=== PATIENT | male | born 1965 | race Caucasian/White ===

== ENCOUNTER 2020-05-06 18:19 | Emergency (ER) | payer BC, SELFPAY ==
--- NOTE | ~2020-05-06 | CT_ITS ---
EXAMINATION: CT cervical spine wo con DATE: 05/06/2020 19:17 INDICATION: Status post fall. Intoxication. TECHNIQUE: Computed tomography (CT) of the cervical spine was performed without intravenous contrast. The dose-length product was 434 mGy-cm. Automated exposure control and iterative reconstruction tech nique were employed. COMPARISON: None FINDINGS: No acute fracture or traumatic malalignment. Reversal of cervical lordosis, likely due to m uscle spasm and or patient positioning. Lung apices are normal. No paraspinal soft tissue abnormality . There is intracranial atherosclerosis. There is disc narrowing and endplate hypertrophy at C5-6 and C6-7. IMPRESSION: 1. No acute abnormality of cervical spine. 2: Moderate cervical spondylosis. Reviewed, dictated and finalized at location A.
--- NOTE | ~2020-05-06 | CT_ITS ---
EXAMINATION: CT brain wo con DATE: 05/06/2020 19:17 INDICATION: Fall with intoxication TECHNIQUE: Computed tomography (CT) of the head was performed without intravenous contrast. The dose- length product was 605.33 mGy-cm. The mA was adjusted according to patient size. Iterative reconstruc tion technique was employed. COMPARISON: None FINDINGS: There is mild cerebellar atrophy. No acute intracranial hemorrhage, infarction, mass or mas s effect. No ventriculomegaly or midline shift. No depressed skull fracture. There are surgical stapl es of the scalp in the left parietal region. No depressed skull fracture. Paranasal sinuses and masto ids are pneumatized. IMPRESSION: 1. No acute intracranial abnormality. Reviewed, dictated and finalized at location A.
[2020-05-06 18:18] VITALS: BP 119/75; PULSE 77; RESP 18; TEMP 36.6; O2SAT 97
--- NOTE | 2020-05-06 18:40 | ED.FALL ---
HPI - Fall General Chief Complaint: Fall <Mariel Painter MD - Last Filed: 05/06/20 18:46> Stated Complaint: FALL/HI/ETOH <Mariel Painter MD - Last Filed: 05/06/20 18:46> Time Seen by Provider: 05/06/20 18:26 <Mariel Painter MD - Last Filed: 05/06/20 18:46> History of Present Illness HPI Narrative: Patient presents via EMS for falling at home. 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 Then this evening he had a couple mikes lemonade, and then some shots. After dinner he went to the entertainment center open the door and fell backwards onto the steps. He had no loss of conscious. His was home with him. Here he has no pain, he is in good humor, cracking jokes. His is worried that he will have a concussion. He has a laceration on the left postauricular scalp. Bleeding is controlled. Medical history is hypertension controlled on medication. Surgical history is vasectomy, left ankle repair, left bicep tendon rupture, He smokes cigarettes, drinks alcohol, does not do marijuana. <Mariel Painter MD - Last Filed: 05/06/20 18:46> MD complaint: fall <Mariel Painter MD - Last Filed: 05/06/20 18:46> Onset (ago): hour(s) <Mariel Painter MD - Last Filed: 05/06/20 18:46> Fall from: standing <Mariel Painter MD - Last Filed: 05/06/20 18:46> Fall witnessed: yes, by family <Mariel Painter MD - Last Filed: 05/06/20 18:46> Place fall occurred: home <Mariel Painter MD - Last Filed: 05/06/20 18:46> Loss of consciousness: none <Mariel Painter MD - Last Filed: 05/06/20 18:46> Prolonged down time: no <Mariel Painter MD - Last Filed: 05/06/20 18:46> Symptoms prior to fall: none <Mariel Painter MD - Last Filed: 05/06/20 18:46> Context: other (Loss of balance) <Mariel Painter MD - Last Filed: 05/06/20 18:46> Location of injury: head <Mariel Painter MD - Last Filed: 05/06/20 18:46> Related Data Allergies/Adverse Reactions: Allergies Allergy/AdvReac Type Severity Reaction Status Date / Time No Known Allergies Allergy Unknown Verified 05/06/20 18:22 <Mariel Painter MD - Last Filed: 05/06/20 18:46> Review of Systems Review of Systems: Narrative: CONSTITUTIONAL: Denies fever, chills, or sweats. EYES: Denies visual changes, redness, or discharge. ENT: Denies rhinorrhea, congestion, sore throat, or otalgia. CARDIOVASCULAR: Denies chest pain, palpitations, or edema. RESPIRATORY: Denies cough or dyspnea. GASTROINTESTINAL: Denies abdominal pain, nausea, vomiting, or diarrhea. GENITOURINARY: Denies dysuria or hematuria. SKIN: Denies rash or itching. MUSCULOSKELETAL: Denies back pain, joint pain, or myalgia. NEUROLOGIC: Denies headache, numbness, or weakness. PSYCHIATRIC: Denies anxiety or depression. <Mariel Painter MD - Last Filed: 05/06/20 18:46> All systems reviewed & are unremarkable except as noted in HPI and below <Mariel Painter MD - Last Filed: 05/06/20 18:46> [facility] Past Medical History Medical History: Medical History Biceps tendon rupture <Mariel Painter MD - Last Filed: 05/06/20 18:46> Surgical History Surgical History: Surgical History (Updated 05/06/20 @ 18:43 by Mariel Painter MD) History of ankle surgery History of vasectomy <Mariel Painter MD - Last Filed: 05/06/20 18:46> Social History Social History: Social History (Updated 05/06/20 @ 18:44 by Mariel Painter MD) Smoking status: Current every day smoker Alcohol intake: current Substance use: never <Mariel Painter MD - Last Filed: 05/06/20 18:46> Exam Narrative: Exam Narrative: GENERAL: Well-appearing, well-nourished, and in no acute distress. Laughing and cracking jokes. HEAD: Normocephalic, atraumatic. 3 cm lack behind the left ear. EYES: PERRLA and EOMI. ENT: Nares clear, no rhinorrhea or epistaxis. Mucous membranes moist. NECK: Supple. CHEST: Clear t
[2020-05-06 18:42] LABS: Basophils Absolute Auto 0.1 K/mm3 (0.0-0.1); Eosinophils Absolute Auto 0.1 K/mm3 (0-0.3); Eosinophils Percent Auto 1.1 % (0-4.4); Hematocrit 40.9 % (42.0-52.0); Hemoglobin 13.9 g/dL (14.0-18.0); Immature Granulocyte Absolute 0.02 K/mm3 (0.00-0.031); Immature Granulocyte Percent A 0.3 % (0-0.5); Lymphocytes Absolute Auto 2.22 K/mm3 (0.9-3.2); Lymphocytes Percent Auto 36.2 % (18.3-44.2); Mean Platelet Volume 8.6 fl (7.4-10.4); Monocytes Absolute Auto 0.7 K/mm3 (0.1-0.6); Monocytes Percent Auto 11.9 % (2.6-8.5); Neutrophils Percent Auto 49.5 % (45.5-73.1); Platelet Count Result 230 k/mm3 (150-375); Red Blood Count 4.35 M/mm3 (4.6-6.20); Red Cell Distribution Width 12.3 % (11.5-14.5); White Blood Count 6.1 K/mm3 (4.5-10.0)
[2020-05-06 18:51] LABS: Prothrombin Time 12.5 Seconds (11.1-14.7)
[2020-05-06 18:55] LABS: Alanine Aminotransferase 24 U/L (4-50); Albumin Level 4.4 g/dL (3.5-5.1); Alkaline Phosphatase 40 U/L (38-126); Anion Gap 14.2 mmol/L (7-16); Aspartate Amino Transferase 36 U/L (17-59); Bilirubin,Total 0.4 mg/dL (0.2-1.3); Blood Urea Nitrogen 15 mg/dL (9-20); Calcium 9.3 mg/dL (8.4-10.2); Carbon Dioxide 31 mmol/L (22-30); Chloride 96 mmol/L (98-107); Estimated CRCL calculation 65 ml/min; Estimated Glomerular Filt Rate > 60; Glucose 91 mg/dL (75-110); Potassium 3.2 mmol/L (3.4-5.0); Sodium 138 mmol/L (137-145)
[2020-05-06 18:56] LABS: Ethanol 267 mg/dL (<10)
[2020-05-06] MEDS: POTASSIUM CHLORIDE 20 MEQ TABLET PO (19:24)
[2020-05-06 19:26] VITALS: BP 127/74; PULSE 69; RESP 16; O2SAT 97
[2020-05-06 20:24] LABS: Amphetamine Screen Urine Negative (Negative); Barbiturate Screen Urine Negative (Negative); Benzodiazepines Screen Urine Negative (Negative); Cannabinoid Screen Urine Negative (Negative); Cocaine Screen Urine Negative (Negative); Methadone Screen Urine Negative (Negative); Opiate Screen Urine Negative (Negative); Phencyclidine Screen Urine Negative (Negative)
[2020-05-06 21:12] VITALS: BP 113/67; PULSE 76; RESP 24; O2SAT 96
== END 2020-05-06 21:14 | disposition home or self-care (01) ==
LOC: ANHED 18:48
PROVIDERS: Emergency Provider Emergency Medicine; PCP Internal Medicine
DX: S01.01XA Laceration without foreign body of scalp, initial encounter (principal); F10.920 Alcohol use, unspecified with intoxication, uncomplicated; Y90.8 Blood alcohol level of 240 mg/100 ml or more; I10 Essential (primary) hypertension; F17.210 Nicotine dependence, cigarettes, uncomplicated; M47.812 Spondylosis without myelopathy or radiculopathy, cervical region; W18.39XA Other fall on same level, initial encounter
CPT/HCPCS: 12002; 36415; 70450; 72125; 80053; 80307; 85025; 85610; 96365; 96366; 99284; A9270; J3411; J3475; J7121

== ENCOUNTER 2020-07-30 03:25 | Outpatient (CLI) | payer BC, SELFPAY ==
[2020-07-30 19:05] LABS: SARS-CoV-2 RNA PCR Negative
== END 2020-07-30 03:26 | disposition home or self-care (01) ==
LOC: ANHCOVIDDT 03:25
PROVIDERS: PCP Internal Medicine; Visit Provider Internal Medicine Gastroenterology
DX: Z01.812 Encounter for preprocedural laboratory examination (principal); Z20.828 Contact with and (suspected) exposure to other viral communicable diseases
CPT/HCPCS: 87635; C9803; U0003

== ENCOUNTER 2020-08-01 01:26 | Day surgery (SDC) | payer BC, SELFPAY ==
[2020-07-28 09:41] VITALS: BMI 26.6
[2020-08-01 07:37] VITALS: BP 143/85; PULSE 80; RESP 20; TEMP 36.6; O2SAT 98; BMI 26.2
--- NOTE | 2020-08-01 07:44 | WPDANESEPPF ---
Anes - Initial Pre Proc Eval Procedure: Operation Date: 08/01/20 08:30 Proposed Procedures p Screening Colonoscopy - Pravin Carbone MD Date/Time: 08/01/20 07:44 Surgeon: Pravin Carbone MD Pre Op Diagnosis: Neoplasm Screening Patient Data Age: 54 Gender: M Height: 1.75 m Weight: 80.4 kg Last Vital Signs Temp 36.6 C 08/01/20 07:37 Pulse 80 08/01/20 07:37 Resp 20 08/01/20 07:37 BP 143/85 H 08/01/20 07:37 Pulse Ox 98 08/01/20 07:37 Allergies Allergy/AdvReac Type Severity Reaction Status Date / Time No Known Allergies Allergy Unknown Verified 08/01/20 07:36 Home Medications Medication Instructions Recorded Confirmed Type alprazolam 0.5 mg PO BID PRN 07/28/20 07/28/20 History diltiazem HCl [Tiadylt ER] 360 mg PO DAILY 07/28/20 07/28/20 History hydrochlorothiazide 25 mg PO DAILY 07/28/20 07/28/20 History Patient hx anesthesia problems: none Family hx anesthesia problems: none PMFSH Past Medical History Medical History (Updated 08/01/20 @ 07:45 by Brian Messer MD) Biceps tendon rupture Excessive drinking alcohol HTN (hypertension) Overweight (BMI 25.0-29.9) Surgical History Surgical History (Updated 05/06/20 @ 18:43 by Mariel Painter MD) History of ankle surgery History of vasectomy Social History Social History (Updated 05/06/20 @ 18:44 by Mariel Painter MD) Smoking status: Never smoker Alcohol intake: current Drinks per week: 10 Substance use: never Substance use type: does not use Living arrangements: with family Gender identity (if verbalized by the patient): Male Spiritual care concerns: No Anes - Eval Final PreProcedure Day of Procedure 08/01/20 07:44 Patient weight: overweight Heart: regular rate and rhythm Lungs: clear to auscultation and normal air movement Airway: Mallampati scale class II Neurological: alert and oriented Last oral intake: >/= 8 hours ASA classification: II Emergent: no Anesthetic plan: proceed Anesthesia type and monitoring: general GIVS Informed Consent: The patient's anesthetic plan and its attendant risks and benefits were discussed with the patient/family/POA. Questions were solicited and answers provided to the satisfaction of the patient/family/POA.
--- NOTE | 2020-08-01 07:50 | PM.HPGS ---
History of Present Illness History of Present Illness Consent: Risks, benefits, and alternatives have been discussed and questions answered. Patient agrees to proceed with procedure. Chief complaint: Neoplasm Screening Narrative: Hemanth Sierra is a 54 year old W male Referred for screening colonoscopy secondary history of colonic polyps. Patient's last colonoscopy was 5 years ago at which time 2 polyps were removed adenomatous. Patient also diverticular disease. No interval complaints. Patient has no family history of colon polyps or colon cancer [facility] Past Medical History Medical History Biceps tendon rupture Excessive drinking alcohol HTN (hypertension) Overweight (BMI 25.0-29.9) Surgical History Surgical History History of ankle surgery History of vasectomy Social History Social History Smoking status: Never smoker Alcohol intake: current Drinks per week: 10 Substance use: never Substance use type: does not use Living arrangements: with family Gender identity (if verbalized by the patient): Male Spiritual care concerns: No Meds Home Medications and Allergies Home Medications Medication Instructions Recorded Confirmed Type alprazolam 0.5 mg PO BID PRN 07/28/20 07/28/20 History diltiazem HCl [Tiadylt ER] 360 mg PO DAILY 07/28/20 07/28/20 History hydrochlorothiazide 25 mg PO DAILY 07/28/20 07/28/20 History Allergies Allergy/AdvReac Type Severity Reaction Status Date / Time No Known Allergies Allergy Unknown Verified 08/01/20 07:36 Vital Signs Vital Signs - 24 hr 08/01/20 07:37 Temperature 36.6 C Pulse Rate 80 Respiratory Rate 20 Blood Pressure 143/85 H Pulse Oximetry 98 Exam Const: Orientation/consciousness: patient oriented x3 Resp: Auscultation: clear to auscultation bilaterally Cardio: Rate: regular rate Rhythm: regular rhythm Heart sounds: no murmurs GI: GI Palp: Yes Soft to palpation, No Tenderness to palpation present (GI), Yes No hepatosplenomegaly present and No Palpable mass present Auscultation: normal bowel sounds Neuro: General: patient oriented x3 and no focal motor deficits Extrem: General: no pedal edema Assessment and Plan Additional Plan screening colonoscopy secondary history of colonic polyps
[2020-08-01] MEDS: LACTATED RINGERS 1,000 ML 150 ML IV CONT (07:59)
[2020-08-01] MEDS: SIMETHICONE ORAL SUSPENSION 20 MG/0.3 ML 30 ML BOTTLE 0.6 ML IRRIGATION (08:51)
[2020-08-01 08:54] VITALS: BP 108/65; PULSE 69; RESP 17; O2SAT 97
[2020-08-01 09:04] VITALS: BP 125/78; PULSE 60; RESP 23; O2SAT 98
[2020-08-01 09:14] VITALS: BP 125/87; PULSE 69; RESP 20; O2SAT 97
== END 2020-08-01 09:25 | disposition home or self-care (01) ==
PROVIDERS: PCP Internal Medicine; Visit Provider Internal Medicine Gastroenterology
PROC: 0DJD8ZZ Inspection of Lower Intestinal Tract, Via Natural or Artificial Opening Endoscopic (ICD-10-PCS; CPT 45378; principal; 2020-08-01 08:30)
DX: Z12.11 Encounter for screening for malignant neoplasm of colon (principal); K57.30 Diverticulosis of large intestine without perforation or abscess without bleeding; K64.4 Residual hemorrhoidal skin tags; I10 Essential (primary) hypertension; E66.3 Overweight; Z72.89 Other problems related to lifestyle; Z86.010 Personal history of colon polyps
CPT/HCPCS: 45378; J2704; J7120

== ENCOUNTER 2020-12-12 16:44 | Outpatient (CLI) | payer BC, SELFPAY | END 2020-12-12 16:45 | disposition home or self-care (01) | LOC: ANHCOVIDVC 16:44 | PROVIDERS: PCP Internal Medicine | DX: Z23 Encounter for immunization (principal) | CPT/HCPCS: 0001A; 91300 ==

== ENCOUNTER 2021-01-02 16:46 | Outpatient (CLI) | payer BC, SELFPAY | END 2021-01-02 16:47 | disposition home or self-care (01) | LOC: ANHCOVIDVC 16:46 | PROVIDERS: PCP Internal Medicine | DX: Z23 Encounter for immunization (principal) | CPT/HCPCS: 0002A; 91300 ==

== ENCOUNTER → 2021-04-07 06:32 | Outpatient (CLI) | payer BC, SELFPAY ==
[2021-04-07 17:12] LABS: SARS-CoV-2 RNA PCR Negative
== END ==
PROVIDERS: PCP Internal Medicine; Visit Provider Internal Medicine
DX: R05 Cough (principal); R50.9 Fever, unspecified; Z20.822 Contact with and (suspected) exposure to COVID-19
CPT/HCPCS: C9803; U0003; U0005